=== PATIENT | female | born 1980 | race African-American/Black ===

== ENCOUNTER 2018-11-07 03:58 | Emergency (ER) | payer OTHER ==
[~2018-11-07] VITALS: Ht 160 cm; Wt 64.0 kg
[2018-11-07] MEDS ORDERED: KETOROLAC 60MG/2ML VIAL IM STA (04:56)
[2018-11-07] MEDS ORDERED: ACETAMINOPHEN WITH CODEINE 300/30MG TABLET PO ONE (06:30)
[2018-11-07] MEDS ORDERED: SODIUM CHLORIDE 0.9% 1,000 ML IV ONE (07:37)
[2018-11-07] MEDS ORDERED: PROPOFOL 200MG/20ML VIAL IV ONE (07:45)
[2018-11-07] MEDS ORDERED: MIDAZOLAM HCL 2 MG/2 ML VIAL IV ONE (07:45)
[2018-11-07] MEDS ORDERED: KETAMINE HCL 50 MG/ML 10ML IV ONE (07:45)
[2018-11-07] MEDS ORDERED: MORPHINE SULFATE 4 MG/ML CPJ (NOT FOR IM USE) IV ONE ×2 (08:00→10:45)
[2018-11-07 08:14] LABS: HEMATOCRIT. 37.9 % (36.0-48.0); HEMOGLOBIN. 12.6 g/dL (12.0-16.0); MEAN CORPUSCULAR HEMOGLOBIN 27.9 pg (28.0-32.0); MEAN CORPUSCULAR VOLUME 83.9 fL (81.0-99.0); MEAN PLATELET VOLUME 8.1 fl (7.4-10.4); PLATELET 286 x1000/uL (130-400); RED BLOOD CELL COUNT 4.51 mill/uL (4.2-5.4); RED CELL DISTRIBUTION WIDTH 13.4 % (11.6-14.6)
[2018-11-07] MEDS ORDERED: MORPHINE SULFATE 10 MG/ML CPJ IV ONE ×2 (08:15→11:15)
[2018-11-07 08:18] LABS: PARTIAL THROMBOPLASTIN TIME 22.4 sec (23.4-31.0)
[2018-11-07 08:19] LABS: CHLORIDE 102 mEq/L (98-107)
[2018-11-07 08:48] LABS: PLATELET ESTIMATE NORMAL
[2018-11-07 09:16] VITALS: BP 142/71
== END 2018-11-07 12:20 | disposition short-term general hospital (02) ==
LOC: ER 03:58 → CANBEDREQ 11:49 → ER 12:20
DX: S82.252A Displaced comminuted fracture of shaft of left tibia, initial encounter for closed fracture (principal); S83.105A Unspecified dislocation of left knee, initial encounter; I10 Essential (primary) hypertension; W07.XXXA Fall from chair, initial encounter; Y93.89 Activity, other specified; Y92.018 Other place in single-family (private) house as the place of occurrence of the external cause
CPT/HCPCS: 36415; 73560; 73590; 73600; 80053; 81025; 85025; 85610; 85730; 99152; 99285; J1885; J2250; J2270; J3490; J7030; 27752; J2704